=== PATIENT | female | born 1950 | race Caucasian/White ===

== ENCOUNTER 2022-03-02 18:49 | Emergency (ER) | payer MEDICARE, OTHER, SELFPAY ==
--- NOTE | ~2022-03-02 | XR_ITS ---
EXAMINATION: XR ANKLE, LEFT CLINICAL INFORMATION: Ankle pain COMPARISON: Left calcaneus 08/07/2007 TECHNIQUE: AP, lateral, and mortise views of the left ankle. FINDINGS: Soft tissue swelling laterally as well as medially. The ankle mortise appears stable. No fractures are seen. No joint effusion is detected. Incidentally noted plantar calcaneal spur XR/XR ankle LT min 3V IMPRESSION: No acute osseous ankle injury.
[2022-03-02 20:33] VITALS: BP 136/81; PULSE 87; RESP 18; TEMP 37.1; O2SAT 95; BMI 31.1
--- NOTE | 2022-03-02 22:48 | ED.GENADULT ---
HPI - General Adult General Chief complaint: Extremity Injury, Lower Stated complaint: left ankle sprain? Time Seen by Provider: 03/02/22 22:40 Source: patient Mode of arrival: ambulatory Limitations: no limitations History of Present Illness HPI narrative: 71-year-old female presents emergency department with 1 day of left ankle pain she denies any falls or injury states to have the she denies any history of gout has any redness or swelling or signs of infection she had intractable pain is there patient did have an x-ray which he bleeding. Related Data Allergies Allergy/AdvReac Type Severity Reaction Status Date / Time No Known Allergies Allergy Verified 03/02/22 22:47 PMFSH Social History Social History Advance Directives: No Advance Directives Information Provided: No Physical Exam ED Vital Signs: Vital Signs - 24 hr 03/02/22 20:33 Temperature 98.8 F Pulse Rate 87 Respiratory Rate 18 Blood Pressure 136/81 Pulse Oximetry 95 Oxygen Delivery Method Room Air BMI result Body Mass Index 31.1 General: Well-appearing well-nourished in no signs of distress HEENT: Normocephalic atraumatic? Neck: No signs of JVD, no masses no tenderness or lymphadenopathy Cardiovascular: Regular rate and rhythm Respiratory: Clear to auscultation bilaterally Abdomen: Soft nontender no masses Extremities:Pain and tenderness to medial malleolus or any movement of the foot. No redness swelling Normal pedal pulses no signs of edema Skin: Dry warm no rashes Back: No tenderness full ROM Medical Decision Making MDM Narrative Medical decision making narrative: concern for gout vs arthritis I will start on a short course of prednisone and have the patient follow up with her doctor. Discharge Plan Discharge Clinical Impression: Acute right ankle pain Patient Disposition: Home, Self-Care Instructions: Arthralgia (ED) Additional Instructions: Please call to follow up with your doctor. If you have any other concerns please return to the ED.
[2022-03-02] MEDS: predniSONE 20 MG TABLET 60 MG PO (23:29)
== END 2022-03-02 23:39 | disposition home or self-care (01) ==
PROVIDERS: Emergency Provider Student in an Organized Health Care Education/Training Program; PCP Internal Medicine
DX: M25.572 Pain in left ankle and joints of left foot (principal)
CPT/HCPCS: 73610; 99282; 99283